=== PATIENT | male | born 1995 | race Caucasian/White ===

== ENCOUNTER 2021-02-18 09:59 | Emergency (ER) | payer OTHER ==
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
[2021-02-18] MEDS ORDERED: Ketorolac 30 MG/ML SDV IM ONE (15:46)
[2021-02-18] MEDS ORDERED: Ketorolac 30 MG/ML SDV ONE (16:16)
== END 2021-02-18 16:55 | disposition home or self-care (01) ==
LOC: DL.ED 09:59
DX: S39.012A Strain of muscle, fascia and tendon of lower back, initial encounter (principal); V49.40XA Driver injured in collision with unspecified motor vehicles in traffic accident, initial encounter; Y92.410 Unspecified street and highway as the place of occurrence of the external cause
CPT/HCPCS: 72100; 96372; 99283; 99284-25; J1885